=== PATIENT | female | born 2000 | race Asian ===

== ENCOUNTER 2022-11-07 15:46 | Outpatient (CLI) | payer BC ==
[~2022-11-07 15:46] MED LIST: Magnevist 469MG/ML 20 ML VIAL ONE
== END 2022-11-07 15:47 | disposition home or self-care (01) ==
LOC: CSHMRI 15:46
PROVIDERS: ATTEND Student in an Organized Health Care Education/Training Program
DX: H53.2 Diplopia (principal); R20.2 Paresthesia of skin
CPT/HCPCS: 70553